=== PATIENT | female | born 1950 | race Caucasian/White ===

== ENCOUNTER 2017-04-18 06:53 | Day surgery (SDC) | payer OTHER ==
[~2017-04-18] VITALS: Ht 154.9 cm; Wt 57.1 kg
[2017-04-18 07:08] VITALS: BP 126/80
[2017-04-18 10:43] VITALS: BP 130/78
== END 2017-04-18 10:40 | disposition home or self-care (01) ==
LOC: GI 06:53 → OR 09:30 → GI 09:30
PROVIDERS: Internal Medicine
PROC: 0DBN8ZX Excision of Sigmoid Colon, Via Natural or Artificial Opening Endoscopic, Diagnostic (ICD-10-PCS; principal; 2017-04-18 09:30)
DX: K57.30 Diverticulosis of large intestine without perforation or abscess without bleeding (principal); K64.1 Second degree hemorrhoids; K59.00 Constipation, unspecified; E07.9 Disorder of thyroid, unspecified
CPT/HCPCS: 45378; J1200; J1610; J2250; J2310; J3010; J3490